=== PATIENT | female | born 1960 | race Caucasian/White ===

== ENCOUNTER 2024-10-01 21:24 | Emergency (ER) | payer MEDICARE, SELFPAY ==
[2024-10-01 21:28] VITALS: BP 145/78; PULSE 74; RESP 18; TEMP 36.7; O2SAT 98; BMI 36.3
--- NOTE | 2024-10-01 21:31 | ECG_ITS ---
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 Measurements Intervals [place] Rate: 78 P: 64 SD: 171 QRS: 85 QRSD: 75 T: 83 QT: 358 QTc: 408 Interpretive Statements SINUS RHYTHM LOW QRS VOLTAGE IN PRECORDIAL LEADS [QRS DEFLECTION < 1.0 mV IN CHEST LEADS] No previous ECG available for comparison Electronically Signed On 10-03-2024 19:26:04 CDT by Jodi Boyd M.D. [id number]
--- NOTE | 2024-10-01 21:43 | XRR_ITS ---
PROCEDURE INFORMATION: Exam: XR Chest Exam date and time: 10/01/2024 11:05 PM Age: 64 years old Clinical indication: Pain; Shortness of breath; Chest pressure; Prior surgery; Surgery date: 6+ months; Surgery type: Port a cath; C/O cp with SOB. History of colon cancer. TECHNIQUE: Imaging protocol: Radiologic exam of the chest. Views: 1 view. COMPARISON: No relevant prior studies available. FINDINGS: Tubes, catheters and devices: There is a left chest port catheter with the tip at the cavoatrial junction. Lungs: There is no consolidation. Pleural spaces: No pleural effusion or pneumothorax. Heart/Mediastinum: The heart and mediastinum are normal in size. Bones/joints: An ACDF plate is present on the lower cervical spine. Orthopedic hardware for posterior fusion of the cervical spine is partially visualized. No acute fracture. XR/XR chest 1V portable [id number] IMPRESSION: No acute findings.
[2024-10-01 22:17] LABS: Basophils % 0.6 %; Eosinophils # 0.2 10^3/uL (0.0-0.8); Eosinophils % 3.5 %; Hematocrit 38.2 % (36-47); Lymphocytes # 1.6 10^3/uL (0.8-4.8); Lymphocytes % 23.5 %; Mean Corpuscular HGB Conc 32.2 g/dL (30-55); Mean Corpuscular Hemoglobin 28.7 pg (27-33); Mean Corpuscular Volume 89.3 fl (85-98); Mean Platelet Volume 9.8 fL (7.4-10.4); Monocytes # 0.5 10^3/uL (0.2-0.9); Monocytes % 7.6 %; Neutrophils # 4.26 10^3/uL (1.8-7.7); Neutrophils % 64.5 %; Nucleated Red Blood Cells % 0 %; Platelet Count 216 10^3/cmm (157-399); Red Blood Count 4.28 10^6/uL (3.85-5.65); Red Cell Distribution Width 13.1 % (12.1-15.1)
[2024-10-01 22:34] LABS: Troponin(5th) Baseline 9 ng/L (0-10)
[2024-10-01 22:37] LABS: Alanine Aminotransferase 13 U/L (0-33); Albumin Level 4.1 g/dL (3.5-5.2); Alkaline Phosphatase 119 U/L (35-105); Anion Gap 16.9 (5-19); Aspartate Amino Transferase 13 U/L (0-32); Blood Urea Nitrogen 13 mg/dL (8-23); Carbon Dioxide 25 mmol/L (22-29); Chloride 105 mmol/L (98-107); Creatinine Clr Calc Pharmacy 145.5896; Globulin 2.4 g/dL (1.3-4.6); Glucose 137 mg/dL (65-115); Osmolality Calculated 298 mOsm/kg (285-295); Potassium 3.9 mmol/L (3.5-5.1); Sodium 143 mmol/L (136-145); Total Bilirubin 0.2 mg/dL (0.15-1.2); Total Protein 6.5 g/dL (6.6-8.7)
--- NOTE | 2024-10-01 23:16 | CTR_ITS ---
PROCEDURE INFORMATION: Exam: CTA Chest With Contrast Exam date and time: 10/01/2024 11:45 PM Age: 64 years old Clinical indication: Shortness of breath; Chest pressure; Prior surgery; Surgery date: 6+ months; Surgery type: Cervical fusion. Port a cath; C/O chest pain with SOB. Pe in may. History of colon cancer. TECHNIQUE: Imaging protocol: Computed tomographic angiography of the chest with contrast. Exam focused on the arteries. 3D rendering (Not supervised by radiologist): MIP and/or 3D reconstructed images were created by the technologist. Radiation optimization: All CT scans at this facility use at least one of these dose optimization techniques: automated exposure control; mA and/or kV adjustment per patient size (includes targeted exams where dose is matched to clinical indication); or iterative reconstruction. Contrast material: OMNI 350; Contrast volume: 67 ml; Contrast route: INTRAVENOUS (IV); COMPARISON: CR (CHEST, ) 01/10/2024 23:05 RADIATION DOSE METRICS: Total DLP (mGy-cm): 507.69 FINDINGS: Tubes, catheters and devices: Left anterior chest wall port catheter with its tip in the superior vena cava. The reservoir is outside the field of view. Pulmonary arteries: No filling defects in the pulmonary arteries to suggest pulmonary emboli. Aorta: There is no thoracic aortic aneurysm or dissection. There is mild scattered atherosclerotic calcification throughout the thoracic aorta. There are surgical clips versus calcification in the anterior aspect of the aortic root. Lungs: No pulmonary consolidation. Pleural spaces: Unremarkable. No pneumothorax. No pleural effusion. Heart: The heart is normal in size. There are no pericardial fluid collections. Lymph nodes: No enlarged mediastinal or hilar lymph nodes are seen. Bones/joints: No acute fracture is seen. Soft tissues: Unremarkable. Other findings: No acute findings in the included upper abdomen. CT/CT angio chest PE protcl [id number] IMPRESSION: 1. No evidence of pulmonary embolus. 2. No acute findings.
--- NOTE | 2024-10-01 23:43 | ECG_ITS ---
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 Measurements Intervals [place] Rate: 70 P: 97 [place]: 212 QRS: 84 QRSD: 84 T: 89 QT: 370 QTc: 402 Interpretive Statements SINUS RHYTHM WITH FIRST DEGREE AV BLOCK WITH OCCASIONAL SUPRAVENTRICULAR PREMATURE COMPLEXES Compared to ECG 10/01/2024 21:31:34 First degree AV block now present Electronically Signed On 10-03-2024 19:35:46 CDT by Jodi Boyd M.D. [email or web address] [id number]
[2024-10-01] MEDS: iohexol 350 mg/mL 500 mL Btl (per mL) IV (23:46)
[2024-10-02 00:22] VITALS: RESP 18; O2SAT 98
[2024-10-02] MEDS: morphine 4 mg/mL SDV 1 mL IVP (00:22)
[2024-10-02 00:24] VITALS: BP 140/73; PULSE 70; O2SAT 97
[2024-10-02 00:24] LABS: Troponin 5 2HR 8.25 ng/L (0-10)
[2024-10-02] MEDS: ondansetron 2 mg/ML SDV 2 mL 4 MG IVP (00:24)
[2024-10-02 00:41] LABS: Troponin 5 2HR Delta -0.5 ABS# (0-10)
--- NOTE | 2024-10-02 00:42 | ED_ITS ---
HPI - Chest Pain 2 General: Chief Complaint: Chest Pain Stated Complaint: CP dizzy Port gone bad Time Seen by Provider: 10/01/24 23:12 History of Present Illness: 64-year-old female. She has a history o f port placement, in the past, which causes her some chronic chest discomfort. Chest discomfort worsened today. She also has a history of pulmonary embolism for which she is post to be taking Eliquis, but stopped on her own. She is on a car trip from [facility] to [place] and became worried when she was having worsening chest discomfort, radiating into her arm, and into her back and neck with some shortness of breath today Related Data Previous Rx's ?Medication ?Instructions ?Recorded albuterol sulfate 90 mcg/actuation 2 inh inhalation Q4 H PRN shortness 10/02/24 aerosol inhaler of breath or wheezing #6.7 g gabrielle hydrocodone 5 mg-acetaminophen 325 1 tab PO Q8H PRN pa in #7 tabs 10/02/24 mg tablet ondansetron 4 mg disintegrating 4 mg PO Q6H PRN nausea and 10/02/24 tablet vomiting #14 tabs Allergies Allergy/AdvReac Type Severity Reaction Status Date / Time celecoxib (From Celebrex) Allergy Unknown Verified 10/01/24 21:39 duloxetine (From Cymbalta) Allergy Unknown Verified 10/01/24 21:39 nortriptyline Allergy Unknown Verified 10/01/24 21:39 pregabalin (From Lyrica) Allergy Unknown Verified 10/01/24 21:39 Physical Exam 2 Const: COMMON NORMALS: no acute distress GENERAL APPEARANCE: cooperative; not ill appearing and not frail appearing HENMT: COMMON NORMALS: normocephalic, atraumatic and Normal external nose present HEAD & SCALP: normocephalic and atraumatic FACE & SINUS: normal facial exam and face symmetric NOSE: Normal external nose present Eye: COMMON NORMALS: Equal, round and reactive pupils present and EOMs intact bilaterally PUPIL: Yes Equal, round and reactive pupils present Neck/C-Spine: GENERAL: Yes trachea midline Chest: CHEST: Yes Symmetrical chest wall rise Resp: COMMON NORMALS: normal respiratory effort, No retractions, No use of accessory muscles and clear to auscultation bilaterally AUSCULTATION: clear to auscultation bilaterally Cardio: COMMON NORMALS: regular rate and regular rhythm RATE: regular rate RHYTHM: regular rhythm GI: COMMON NORMALS: Normal to inspection, nondistended, normoactive bowel sounds present Extremity: COMMON NORMALS: no pedal edema Neuro: ANNIKA COMA SCALE: document GCS findings Annika coma scale eye opening: Spontaneous [place] coma scale verbal response: Orientated Annika coma scale motor response: Obey commands [place] coma scale total score: 15 S ENSORY EXAM: Yes extremities (intact) Psych: COMMON NORMALS: speech normal SPEECH: Yes normal speech Skin: COMMON NORMALS: no rashes or lesions noted GENERAL SKIN EXAM: no rashes or lesions noted Course 2 Vital Signs: Vital signs: Vital Signs Temperature 98.0 F 10/01/24 21:28 Pulse Rate 65 10/02/24 00:57 Respiratory Rate 18 10/02/24 00:22 Blood Pressure 124/76 10/02/24 00:57 Pulse Oximetry 96 10/02/24 00:57 Oxygen Delivery Me thod Room Air 10/02/24 00:24 MDM - Chest Pain Medical Decision Making Some chest wall tenderness. No other significant findings on exam. Laboratory is not remarkable. CBC and CMP are normal. Her troponin is 9, and 8.[address] of the chest angiogram, shows no evidence of pulmonary embolus, and no acute findings. No significant EKG changes. She will be discharged. Short course of pain medication for her trip. Return for any new or worsening symptoms. She did complain of shortness of breath. She says her albuterol is packed, and she cannot get through it. She will be prescribed this as well. Lab Data 10/01/24 22:11 10/01/24 22:11 Radiology Impressions Chest X-Ray 10/01/24 21:43 IMPRESSION: No acute findings. Chest CTA 10/01/24 23:16 IMPRESSION: 1. No evidence of pulmonary embolus. 2. No acute findings. Laboratory Results WBC 6.60 10^3/uL (3.29-11.43) 10/01/24 22:11 RBC 4.28 10^6/uL (3.85-5.65) 10/01/24 22:11 Hgb 12.30 g/dL (11.27-16.99) 10/01/24 22:11 Hct 38.2 % (36-47) 10/01/24 22:11 MCV 89.3 fl (85-98) 10/01/24 22:11 MCH 28.7 pg (27-33) 10/01/24 22:11 MCHC 32.2 g/dL (30-55) 10/01/24 22:11 RDW 13.1 % (12.1-15.1) 10/01/24 22:11 Plt Count 216 10^3/cmm (157-399) 10/01/24 22:11 MPV 9.8 fL (7.4-10.4) 10/01/24 22:11 Neut % (Auto) 64.5 % 10/01/24 22:11 Lymph % (Auto) 23.5 % 10/01/24 22:11 [place] % (Auto) 7.6 % 10/01/24 22:11 Eos % (Auto) 3.5 % 10/01/24 22:11 Baso % (Auto) 0.6 % 10/01/24 22:11 Neut # (Auto) 4.26 10^3/uL (1.8-7.7) 10/01/24 22:11 Lymph # (Auto) 1.6 10^3/uL (0.8-4.8) 10/01/24 22:11 [place] # (Auto) 0.5 10^3/uL (0.2-0.9) 10/01/24 22:11 Eos # (Auto) 0.2 10^3/uL (0.0-0.8) 10/01/24 22:11 Baso # (Auto) 0.0 10^3/uL (0.0-0.1) 10/01/24 22:11 Nucleated RBC % (auto) 0 % 10/01/24 22:11 Nucleated RBCs # 0.0 /100WBC 10/01/24 22:11 Sodium 143 mmol/L (136-145) 10/01/24 22:11 Potassium 3.9 mmol/L (3.5-5.1) 10/01/24 22:11 Chloride 105 mmol/L (98-107) 10/01/24 22:11 Carbon Dioxide 25 mmol/L (22-29) 10/01/24 22:11 Anion Gap 16.9 (5-19) 10/01/24 22:11 BUN 13 mg/dL (8-23) 10/01/24 22:11 Creatinine 0.5 mg/dL (0.5-0.9) 10/01/24 22:11 GFR Calculation 125.0 mL/min (90-130) 10/01/24 22:11 Glucose 137 mg/dL (65-115) H 10/01/24 22:11 Calculated Osmolality 298 mOsm/kg (285-295) H 10/01/24 22:11 Calcium 9.0 mg/dL (8.5-10.5) 10/01/24 22:11 Total Bilirubin 0.2 mg/dL (0.15-1.2) 10/01/24 22:11 AST 13 U/L (0-32) 10/01/24 22:11 ALT 13 U/L (0-33) 10/01/24 22:11 Alkaline Phosphatase 119 U/L (35-105) H 10/01/24 22:11 Troponin T Baseline 9 ng/L (0-10) 10/01/24 22:11 Troponin T 120 Minute 8.25 ng/L (0-10) 10/01/24 00:02 Delta Troponin T -0.5 ABS# (0-10) L 10/01/24 00:02 Total Protein 6.5 g/dL (6.6-8.7) L 10/01/24 22:11 Albumin 4.1 g/dL (3.5-5.2) 10/01/24 22:11 Globulin 2.4 g/dL (1.3-4.6) 10/01/24 22:11 All radiology interpretation(s) finalized by discharge Discharge Plan Discharge Patient Disposition: Home Clinical Impression: Chest wall pain Condition: Stable Prescriptions: New hydrocodone-acetaminophen 5-325 mg tablet 1 tab PO Q8H PRN (Reason: pain) Qty: 7 0RF ondansetron 4 mg tablet,disintegrating 4 mg PO Q6H PRN (Reason: nausea and vomiting) Qty: 14 0RF albuterol sulfate 90 mcg/actuation HFA aerosol inhaler 2 inh INHALATION Q4H PRN (Reason: shortness of breath or wheezing) Qty: 6.7 1RF Discharge Orders: Discharge ED (Routine); Ordered 10/02/24 Ordered By: Dom Leach Patient Instructions: Chest Wall Pain (ED), Opioid Safety, Pain Management Activity Restrictions/Additional Instructions: Medication as directed for significant pain. You may take Tylenol instead of pain medication. Return for fever, worsening pain, worsening shortness of breath, any other concerning symptoms. Print Language: Mongolian Coding Level of Care Code ED Drawing Operator for Ladi Casper
[2024-10-02 00:57] VITALS: BP 124/76; PULSE 65; O2SAT 96
== END 2024-10-02 01:07 | disposition home or self-care (01) ==
PROVIDERS: Emergency Provider Emergency Medicine
DX: R07.89 Other chest pain (principal)
CPT/HCPCS: 36415; 71045; 71275; 80053; 84484; 85025; 93005; 96374; 96375; 99285; J2270; J2405